=== PATIENT | male | born 1940 | race Caucasian/White ===

== ENCOUNTER → 2020-12-06 13:53 | Outpatient (CLI) | payer MEDICARE, SELFPAY ==
--- NOTE | ~2020-12-06 | XR_ITS ---
EXAMINATION: XR hip BI wo pelvis EXAM DATE: 12/06/2020 14:24 INDICATION: No known recent injury provided at this time. Pain of the hips. TECHNIQUE: Each hip imaged independently (separate right and also left hip) crosstable lateral and ' frog-leg' and frontal projections for interpretation. There is no prior study for comparison. FINDINGS: No radiographic evidence of hip avascular necrosis. 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 There are no acute fractures or dislocations identified. There is no subcuta neous gas. The soft tissue is unremarkable. There are no radiopaque foreign bodies. IMPRESSION: Mild bilateral hip osteoarthritis. Reviewed, dictated and finalized at location B.
--- NOTE | ~2020-12-06 | XR_ITS ---
EXAMINATION: XR lumbar spine min 4V DATE: 12/06/2020 14:24 INDICATION: Myalgia, unspecified site. TECHNIQUE: 3 views of lumbar spine were obtained. COMPARISON: CT abdomen and pelvis 07/30/2016 FINDINGS: There is 3 degrees dextrocurvature of lumbar spine. Vertebral body heights are normal. Ther e is moderately decreased disc height at L5-S1. There is multilevel mild facet joint osteoarthritis. IMPRESSION: 1. Moderate lower lumbar spondylosis. Reviewed, dictated and finalized at location A.
== END ==
PROVIDERS: PCP Internal Medicine; Visit Provider Internal Medicine
DX: M79.10 Myalgia, unspecified site (principal); M47.896 Other spondylosis, lumbar region; M16.0 Bilateral primary osteoarthritis of hip
CPT/HCPCS: 72110; 73521

== ENCOUNTER 2024-11-30 13:19 | Outpatient (CLI) | payer MEDICARE, SELFPAY ==
--- NOTE | ~2024-11-30 | MR_ITS ---
EXAMINATION: MR brain/brain stem wo/w con DATE: 11/30/2024 14:37 INDICATION: Unsteadiness on feet TECHNIQUE: Magnetic resonance imaging (MRI) of the brain and brainstem was performed without and with 14 mL ProHance intravenous contrast. Sequences included sagittal and axial T1-weighted SE, axial dif fusion-weighted FS SE, axial 3D SWAN, axial T2-weighted FLAIR, and axial T2-weighted FSE. Postcontras t axial and coronal T1-weighted SE was obtained. Apparent diffusion coefficient (ADC) maps were creat ed. COMPARISON: None. FINDINGS: There are no areas of restricted diffusion to suggest acute infarction. No intracranial hemorrhage or abnormal intracranial mass lesion. There are a few small scattered foci of nonspecific increased T2- weighted signal intensity in the cerebral white matter, predominantly involving the deep and perivent ricular white matter which is well within normal limits for age and likely sequela of chronic small v essel ischemic disease. There are no intraparenchymal signal abnormalities seen on the other pulse se quences. Mild increased prominence of the subarachnoid spaces overlying the convexities consistent wi th mild age-appropriate diffuse volume loss. The ventricles are symmetric and normal in size. There a re no abnormal extra-axial fluid collections. Flow voids are seen in the cerebral arteries on the T2- weighted sequences consistent with their expected patency. Mild mucosal thickening in the bilateral e thmoid sinuses and left frontal sinus. Changes of bilateral intraocular lens replacement. Visualized orbits and soft tissues are unremarkable. There are no areas of abnormal enhancement on the post con trast images. IMPRESSION: 1. Normal aging brain. Reviewed, dictated and finalized at location B. IMPRESSION: 1. Normal aging brain.
--- OUTSIDE RECORDS SUMMARY | 2024-11-30 14:33 | XMS_ITS | Referral Summary ---
Author Organization [facility] al Address [address] [place] [address] Care Team Providers Care Carbon Paper Coating Machine Setter Name Role Phone Mary Edward MD Primary Care Provider [phone] Allergies Active Allergy Reactions Criticality Noted Date Comments Levofloxacin Edema Reaction: SWELLING, Medications allopurinol (ZYLOPRIM) 100 mg tablet 2 times daily. Active atenolol-chlorth alidone (TENORETIC) 50-25 mg per tablet Take 1 tablet by mouth daily. 01/21/2018 Active doxazosin (CARDURA) 4 mg tablet Take 4 mg by mouth nightly. 04/04/2018 Active omega 8-vsp-qzd-fish oil 300-1,000 mg capsule daily. Active lisinopril (PRINIVIL,ZESTRI L) 20 mg tabletIndication s:1/2 tab qd (10MG) Take 10 mg by mouth daily. 01/26/2018 Active potassium chloride (KLOR-CON) 20 mEq packet daily. Active simvastatin (ZOCOR) 20 mg tablet Take 20 mg by mouth nightly. 01/26/2018 Active cholecalciferol (VITAMIN D3) 1,000 unit capsule 2,000 Units daily. Active aspirin 81 mg tablet Take 81 mg by mouth daily. Active Active Problems Problem Noted Date Diagnosed Date Biliary disease with obstruction 04/17/2018 Biliary obstruction 04/17/2018 Overview (04/17/2018): Added automatically from request for surgery [id number] Enlarged prostate without lo wer urinary tract symptoms (luts) 08/08/2015 Hypertensive chronic kidney disease with stage 1 through stage 4 chronic kidney disease, or unspecified chronic kidney disease 08/08/2015 Chronic kidney disease, stage 3 (moderate) 02/23 Essential (primary) hypertension 02/24/2012 Gout 02/24/2012 Immunizations Immunization Administration Dates Next Due Influenza, Trivalent, High D ose, Split, Preservative Free, Intramuscular 05/18/2018 Influenza, Trivalent, IM (MDV) 09/04/2016,2015,08/24/2014 Influenza, Unspecified 04/22/2017 Pneumococcal Conjugate PCV 13 08/09/2015 ZOSTER LIVE 08/09/2015 ZOSTER Recombinant 01/29/2019 Social History Tobacco Use Types Packs/Day Years Used Date Smoking Tobacco: Never Smokeless Tobacco: Never Alcohol Use Standard Drinks/Week Comments No 0 (1 standard drink = 0.6 oz pur e alcohol) Sex and Gender Information Value Date Recorded Sex Assigned at Not on file 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 Gender Identity Not on file Sexual Orientation Not on file Last Filed Vital Signs Vital Sign Reading Time Taken Comments Blood Pressure 121/70 03/02/2019 2:31 PM CDT Pulse 71 03/02/2019 2:31 PM CDT Temperature 36.7 C (98.1 F) 03/02/2019 2:31 PM CDT Respiratory Rate 18 04/28/2018 1:10 PM CDT Oxygen Saturation 98% 05/27/2018 1:47 PM CDT Inhaled Oxygen Concentration - - Weight 72 kg (158 lb 12.8 oz) 03/02/2019 2:31 PM CDT Height 177.8 cm (5' 10 ) 03/02/2019 2:31 PM CDT Body Mass Index 22.79 03/02/2019 2:31 PM CDT Plan of Treatment Not on file Insurance GOLD ADVANTAGE CON [facility] GOLD REF GOLD ADVANTAGE CON [facility] GOLD REF Advance Directives For more information, please contact: [phone] * Full Code (Latest Code Status on File) Date Activated Date Inactivated Comments 04/28/2018 10:51 AM 04/28/2018 6:06 PM Care Teams Carbon Paper Coating Machine Setter Relationship Specialty Start Date End Date Mary Edward MD [address] [place] [address] PCP - General 09/27/16
--- OUTSIDE RECORDS SUMMARY | 2024-11-30 14:33 | XMS_ITS | Encounter Summary ---
Author Organization [facility] Address [address] [facility] [address] [place] [address] Care Team Providers Care Teller Head Name Role Phone Mary Edward MD Primary Care Provider [phone] Encounter Details Date Type Department Care Team (Late st Contact Info) Description 08/01/2016 Orders Only [facility] ProviderZara MD [address] [place] [address] Social History Tobacco Use Types Packs/Day Years Used Date Smoking Tobacco: Never Assessed Sex and Gender Information Value Date Recorded Sex Assigned at Not on file 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 Historical Provider [facility] QUIANA AGUILAR Final Result documented in this encounter Visit Diagnoses Not on filedocumented in this encounter Care Teams Teller Head Relationship Specialty Start Date End Date Mary Edward MD [address] [place] [address] PCP - General 09/27/16 documented as of this encounter
--- OUTSIDE RECORDS SUMMARY | 2024-11-30 14:33 | XMS_ITS | Clinical Summary ---
Author Organization [facility] al Address [address] [place] [address] Care Team Providers Care Flavor Maker Name Role Phone Mary Edward MD Primary Care Provider [phone] Allergies Active Allergy Reactions Criticality Noted Date Comments Levofloxacin Edema Reaction: SWELLING, Medications allopurinol (ZYLOPRIM) 100 mg tablet 2 times daily. Active atenolol-chlorth alidone (TENORETIC) 50-25 mg per tablet Take 1 tablet by mouth daily. 01/21/2018 Active doxazosin (CARDURA) 4 mg tablet Take 4 mg by mouth nightly. 04/04/2018 Active omega 1-ooz-zxs-fish oil 300-1,000 mg capsule daily. Active lisinopril [...] (04/17/2018): Added automatically from request for surgery [id number] Enlarged prostate without lo wer urinary tract [...] 08/09/2015 ZOSTER LIVE 08/09/2015 ZOSTER Recombinant 01/29/2019 Surgical History Surgery Date Site/Laterality Comments CHOLECYSTECTOMY Medical History Medical History Date Comments Other specified diseases of biliary tract Mass of bile duct - (Added by TW Conv) Bile duct stricture (HCC) Hx of acute pancreatitis Hypertension Enlarged prostate Family History Medical History Relation Name Comments Diabetes Sister Family history of diabetes mellitus - (Added by TW Conv) Relation Name Status Comments Sister Social History Tobacco Use Types Packs/Day Years Used Date Smoking Tobacco: Never Smokeless Tobacco: Never Alcohol Use Standard Drinks/Week Comments No 0 (1 standard drink = 0.6 oz pur e alcohol) Sex and Gender Information Value Date Recorded Sex Assigned at Not on file 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
--- OUTSIDE RECORDS SUMMARY | 2024-11-30 14:33 | XMS_ITS | Clinical Summary ---
Author Organization [facility] Address [address] [place] [address] Phone Care Team Providers Care Patient Experience Coordinator Name Role Phone Pj Chirinos DO Primary Care Provider [phone] Allergies Active Allergy Reactions Criticality Noted Date Comments Levofloxacin 03/17/2019 Other reaction(s): Edema Reaction: SWELLING, Medications omega-3 (FISH OIL) 1000 MG capsule 1 tab/cap bid 04/21/2012 Active doxazosin (CARDURA) 4 MG tablet 1 tab/cap qday 04/21/2012 Active aspirin (ST ROLAND) 81 MG EC tablet 1 tab/cap qday 04/22/2012 Active ergocalciferol (VITAMIN D-2) 77031 units capsule 1 tab/cap every 2 weeks 3 08/24/2014 Active cholecalciferol (D3-1000) 1000 units capsule 2,000 Units Acti ve allopurinol (ZYLOPRIM) 100 MG tablet 2 times daily. Active KLOR-CON 20 MEQ CR tablet Take 20 mEq by mouth 1 (one) time each day 03/03/2020 Active simvastatin (ZOCOR) 20 MG tablet Take 20 mg by mouth 1 (one) time each day 03/08/2020 Active atenolol-chlorth alidone (TENORETIC) 50-25 MG per tablet Take 1 tablet by mouth 1 (one) time each day 01/02/2020 Active predniSONE (DELTASONE) 2.5 MG tablet 04/17/2021 Active predniSONE (DELTASONE) 5 MG tablet 05/11/2021 Active losartan (COZAAR) 25 MG tablet Take 25 mg by mouth 1 (one) time each day 02/25/2022 Active Active Problems Problem Noted Date Diagnosed Date Other hyperlipidemia 08/08/2015 Overview (10/17/2018): Converted unresolved ICD9, potential mismatch. Benign prostatic hyperplasia without lower urinary tract symptom 08/08/2015 Hypertensive chronic kidney disease with stage 1 through stage 4 chronic kidney disease, or unspecified chronic kidney disease 08/08/2015 Large prostate 08/08/2015 Chronic kidney disease, stage 3 (moderate) 02/23 Essential (primary) hypertension 02/24/2012 Gout 02/24/2012 Immunizations Immunization Administration Dates Next Due Influenza Split High Dose Pr eservative Free IM 05/18/2018 Influenza TIV (IM) 09/04/2016,08/09/2015, 015 Influenza, Injectable, Quadrivalent 05/04/2019 Influenza, Unspecified 04/22/2017 Pneumococcal Conjugate 13-Valent 08/09/2015 Sars-cov-2, Unspecified 05/16/2021,12/14/2020, Zoster 08/09/2015 Zoster Recombinant 01/29/2019 Family History Medical History Relation Comments Diabetes mellitus Sibling Kidney disease Neg Hx Kidney stone Neg Hx Relation Status Comments Sibling Social History Tobacco Use Types Packs/Day Years Used Date Smoking Tobacco: Never Smokeless Tobacco: Never Alcohol Use Standard Drinks/Week Comments No 0 (1 standard drink = 0.6 oz pur e alcohol) Sex and Gender Information Value Date Recorded Sex Assigned at Not on file Legal Sex Male 8:10 AM MST Gender Identity Not on file Sexual Orientation Not on file Last Filed Vital Signs Vital Sign Reading Time Taken Comments Blood Pressure 130/70 05/15/2022 1:32 PM CDT Pulse - - Temperature 36.2 C (97.2 F) 05/15/2022 1:32 PM CDT Respiratory Rate 18 05/15/2022 1:32 PM CDT Oxygen Saturation - - Inhaled Oxygen Concentration - - Weight 74.4 kg (164 lb) 05/15/2022 1:32 PM CDT Height 177.8 cm (5' 10 ) 05/15/2022 1:32 PM CDT Body Mass Index 23.53 05/15/2022 1:32 PM CDT Plan of Treatment Health Maintenance Due Date Last Done Comments Pneumococcal PPSV23/PCV13 65 + Years / High and Highest Risk (2 of 4 - PPSV23) 10/04/2015 08/09/2015 Influenza Vaccine (Season Ended) 2025 04/22/2017, 09/04/2016, 08/09/2015, Additional history exists Insurance [employer] Care Teams Patient Experience Coordinator Relationship Specialty Start Date End Date Pj Chirinos DO PCP - General Family Medicine 05/15/22
== END 2024-11-30 13:20 | disposition home or self-care (01) ==
PROVIDERS: PCP Family Medicine; Visit Provider Family Medicine
DX: R26.81 Unsteadiness on feet (principal)
CPT/HCPCS: 70553; A9579

== ENCOUNTER 2025-03-24 12:51 | Outpatient (CLI) | payer MEDICARE, SELFPAY ==
--- NOTE | ~2025-03-24 | US_ITS ---
US soft tissue head and neck 03/24/2025 13:07 Indication: Palpable right neck mass progressively enlarging, nontender. Prior course of antibiotics without resolution. Procedure: Ultrasound of the right neck Comparison: No prior studies for comparison. Findings: In the right neck at the site of palpable concern there is a well- defined heterogeneous mass measuring 2 x 1.9 cm with central cystic component measuring 1.4 x 1.3 x 1.2 cm. The periphery of the lesion demonstrates echogenic soft tissues with internal vascularity. There is posterior acoustic enhancement. No adjacent soft tissue edema or drainable fluid collection. Impression: 1: Right neck mass with cystic and solid components and vascularized peripheral soft tissue. Differential diagnosis includes branchial cleft cyst versus necrotic lymph node. Less common considerations include a cystic nerve sheath tumor or other cystic neoplasm. Recommend further evaluation with contrast- enhanced CT or MRI of the neck. Reviewed, dictated and finalized at location O. Impression: 1: Right neck mass with cystic and solid components and vascularized peripheral soft tissue. Differential diagnosis includes branchial cleft cyst versus necro tic lymph node. Less common considerations include a cystic nerve sheath tumor or other cystic neoplasm. Recommend further evaluation with contrast-enhanced C T or MRI of the neck.
== END 2025-03-24 12:52 | disposition home or self-care (01) ==
LOC: MICIMG 12:51
PROVIDERS: PCP Family Medicine; Visit Provider Family Medicine
DX: R22.1 Localized swelling, mass and lump, neck (principal)
CPT/HCPCS: 76536

== ENCOUNTER 2025-04-12 09:48 | Outpatient (CLI) | payer MEDICARE, SELFPAY ==
--- NOTE | ~2025-04-12 | CT_ITS ---
EXAMINATION: CT soft tissue neck w con DATE: 04/12/2025 10:37 INDICATION: Localized swelling, mass and lump neck immediately placed on right side of neck where patient feels a lump TECHNIQUE: Computed tomography (CT) of the neck was performed with intravenous contrast. Reformatted images were obtained. The dose-length product was 514.39 mGy-cm. COMPARISON: None FINDINGS: Predental space is within normal limits. No prevertebral soft tissue swelling. Adenoid tissue and visualized intracranial contents are grossly unremarkable. Visualized orbits and globes are unremarkable. Visualized paranasal sinuses are clear. Partial opacification of the right mastoid air cells. Small amount of calcified plaque in the bilateral carotid bulbs causing less than 10% stenosis. Bilateral sublingual glands are unremarkable. Bilateral parotid glands are unremarkable. There are a few nonenlarged, nonspecific lymph nodes scattered throughout the soft tissues of the neck. [place] tonsils are unremarkable. Epiglottis is unremarkable. Moderate joint space narrowing at the C6-C7 level. Multilevel degenerative change in the visualized spine. Dental hardware with surrounding artifact which limits evaluation. No mass identified in the area of palpable concern along the right side of the neck. The valleculae are symmetric. Visualized tongue is unremarkable. However, the tongue was not fully visualized due to the artifact from the dental hardware. Pyriform sinuses are grossly unremarkable. Fat planes throughout the soft tissues of the neck are grossly symmetric. Visualized lungs are unremarkable. IMPRESSION: 1. No mass identified in the area of palpable concern along the right side of the neck. 2. There are a few nonenlarged, nonspecific lymph nodes scattered throughout the soft tissues of the neck. 3. Small amount of calcified plaque in the bilateral carotid bulbs causing less than 10% stenosis. If symptoms persist or worsen, consider a short-term follow-up study or additional imaging for further assessment. Reviewed, dictated and finalized at location Q. IMPRESSION: 1. No mass identified in the area of palpable concern along the right side of t he neck. 2. There are a few nonenlarged, nonspecific lymph nodes scattered throughout th e soft tissues of the neck. 3. Small amount of calcified plaque in the bilateral carotid bulbs causing less than 10% stenosis. If symptoms persist or worsen, consider a short-term follow-up study or additio nal imaging for further assessment.
[2025-04-12 10:26] LABS: Estimated Glomerular Filt Rate 44
--- OUTSIDE RECORDS SUMMARY | 2025-04-12 11:07 | XMS_ITS | Clinical Summary ---
Author Organization [facility] al Address [address] [place] [address] Care Team Providers Care Email Marketing Coordinator Name Role Phone Mary Edward MD Primary Care Provider [phone] Allergies Active Allergy Reactions Criticality Noted Date Comments Levofloxacin Edema Reaction: SWELLING, Medications allopurinol (ZYLOPRIM) 100 mg tablet 2 times daily. Active atenolol-chlorth alidone (TENORETIC) 50-25 mg per tablet Take 1 tablet by mouth daily. 01/21/2018 Active doxazosin (CARDURA) 4 mg tablet Take 4 mg by mouth nightly. 04/04/2018 Active omega 6-miz-iif-fish oil 300-1,000 mg capsule daily. 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 REF Advance Directives For more information, please contact: [phone] * Full Code (Latest Code Status on File) Date Activated Date Inactivated Comments 04/28/2018 10:51 AM 04/28/2018 6:06 PM Care Teams Email Marketing Coordinator Relationship Specialty Start Date End Date Mary Edward MD [address] [place] [address] PCP - General 09/27/16
--- OUTSIDE RECORDS SUMMARY | 2025-04-12 11:07 | XMS_ITS | Encounter Summary ---
Author Organization [facility] Address [address] [facility] [address] [place] [address] Care Team Providers Care Semiconductor Testing Group Leader Name Role Phone Mary Edward MD Primary Care Provider [phone] Encounter Details Date Type Department Care Team (Late st Contact Info) Description 08/01/2016 Orders Only [facility] ProviderZara MD [address] [place] [address] Social History Tobacco Use Types Packs/Day Years Used Date Smoking Tobacco: Never Assessed Sex and Gender Information Value Date Recorded Sex Assigned at Not on file 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
--- OUTSIDE RECORDS SUMMARY | 2025-04-12 11:07 | XMS_ITS | Clinical Summary ---
Author Organization [facility] Address [address] [place] [address] Phone Care Team Providers Care Tallow Refiner Name Role Phone Pj Chirinos DO Primary Care Provider [phone] Allergies Active Allergy Reactions Criticality Noted Date Comments Levofloxacin 03/17/2019 Other reaction(s): Edema Reaction: SWELLING, Medications omega-3 (FISH OIL) 1000 MG capsule 1 tab/cap bid 04/21/2012 Active doxazosin (CARDURA) 4 MG tablet 1 tab/cap qday 04/21/2012 Active aspirin (ST ROLAND) 81 MG EC tablet 1 tab/cap qday 04/22/2012 Active ergocalciferol (VITAMIN D-2) 17260 units capsule 1 tab/cap every 2 weeks [...] 1:32 PM CDT Height 177.8 cm (5' 10) 05/15/2022 1:32 PM CDT Body Mass Index 23.53 05/15/2022 1:32 PM CDT Plan of Treatment Health Maintenance Due Date Last Done Comments Pneumococcal PPSV23/PCV13 65 + Years / Low and Medium Risk (2 of 3 - PCV20 or PCV21) 08/09/2016 08/09/2015 Influenza Vaccine (#1) 2025 7, 09/04/2016, 08/09/2015, Additional history exists Insurance [employer] Care Teams Tallow Refiner Relationship Specialty Start Date End Date Pj Chirinos DO PCP - General Family Medicine 05/15/22
== END 2025-04-12 09:49 | disposition home or self-care (01) ==
PROVIDERS: PCP Family Medicine; Visit Provider Family Medicine
DX: R22.1 Localized swelling, mass and lump, neck (principal)
CPT/HCPCS: 70491; Q9967